=== PATIENT | female | born 1965 | race African-American/Black ===

== ENCOUNTER 2021-09-29 12:14 | Emergency (ER) | payer MEDICAID ==
[~2021-09-29] VITALS: Ht 175.3 cm; Wt 141.0 kg
[2021-09-29 12:40] VITALS: BP 152/98
[2021-09-29 13:27] LABS: BASOPHILS % 0.3 % (0.0-2.0); HEMOGLOBIN. 12.5 g/dL (12.0-16.0); LYMPHOCYTES % 30.8 % (20.0-50.0); MEAN CORPUSCULAR HEMOGLOBIN 29.1 pg (28.0-32.0); MEAN CORPUSCULAR VOLUME 88.8 fL (81.0-99.0); MEAN PLATELET VOLUME 7.5 fl (7.4-10.4); NEUTROPHILS % 59.9 % (40.0-76.0); PLATELET 220 x1000/uL (130-400); RED BLOOD CELL COUNT 4.28 mill/uL (4.2-5.4); RED CELL DISTRIBUTION WIDTH 14.1 % (11.6-14.6)
[2021-09-29 13:33] LABS: CHLORIDE 105 mEq/L (98-107)
[2021-09-29] MEDS ORDERED: HYDROCODONE/APAP 7.5/325MG 1 TAB TABLET PO ONE (13:45)
[2021-09-29] MEDS ORDERED: ACET-2708 MT (16:30)
== END 2021-09-29 17:01 | disposition home or self-care (01) ==
LOC: ER 13:24
DX: M25.561 Pain in right knee (principal); M79.89 Other specified soft tissue disorders; E11.9 Type 2 diabetes mellitus without complications; E78.00 Pure hypercholesterolemia, unspecified; I10 Essential (primary) hypertension
CPT/HCPCS: 36415; 71045; 80053; 83880; 85025; 93970; 99285; Z7610